=== PATIENT | male | born 1995 | race Caucasian/White ===

== ENCOUNTER 2017-01-15 10:45 | Emergency (ER) | payer OTHER ==
[2017-01-15 12:05] LABS: HEMOGLOBIN 17.9 gm/dl (14.0-17.5); RED BLOOD COUNT 6.03 M/UL (4.20-5.50)
[2017-01-15 13:42] LABS: BUN/CREATININE RATIO 9 (0-10)
== END 2017-01-15 13:50 | disposition home or self-care (01) ==
LOC: ER1 10:45
PROVIDERS: Nurse Practitioner Family
DX: R10.12 Left upper quadrant pain (principal); Z88.1 Allergy status to other antibiotic agents
CPT/HCPCS: 36415; 80053; 81001; 85025; 87086; 99284